=== PATIENT | female | born 2000 | race Caucasian/White ===

== ENCOUNTER 2023-04-30 10:45 | Inpatient (IN) | payer BC, OTHER, SELFPAY ==
[2023-04-30 10:50] VITALS: BP 118/83; PULSE 81; RESP 18; TEMP 36.6; O2SAT 100; BMI 17.7
[2023-04-30 11:52] LABS: MANUAL DIFF FLAG NO
[2023-04-30 12:02] LABS: Basophils Absolute Auto 0.1 X10*3/uL (0.0-0.2); Basophils Percent Auto 0.8 % (0-2); Eosinophils Absolute Auto 0.2 X10*3/uL (0.0-0.4); Eosinophils Percent Auto 2.3 % (0-4); Hematocrit 39.2 % (37.0-47.0); Hemoglobin 13.3 g/dl (12.0-16.0); Imm Gran Abs Auto 0.03 X10*3/uL (0.00-0.03); Imm Gran Pct Auto 0.4 % (0.0-0.4); Lymphocytes Absolute Auto 2.3 X10*3/uL (1.2-4.9); Lymphocytes Percent Auto 28.5 % (20-40); Mean Corpuscular HGB Conc 33.9 g/dl (31.0-35.0); Mean Corpuscular Hemoglobin 31.1 pg (27.0-33.0); Mean Corpuscular Volume 91.8 fL (80.0-98.0); Mean Platelet Volume 9.7 fL (9.4-12.3); Monocytes Absolute Auto 0.7 X10*3/uL (0.1-1.2); Monocytes Percent Auto 9.1 % (2-11); Neutrophils Absolute Auto 4.7 x10*3/uL (2.0-8.3); Neutrophils Percent Auto 58.9 % (45-73); Platelet Count 346 X10*3/uL (160-400); Red Blood Count 4.27 X10*6/uL (4.20-5.50); Red Cell Distribution Width 11.6 % (11.0-16.0); White Blood Count 7.9 X10*3/uL (4.8-10.8)
[2023-04-30 12:10] LABS: Alanine Aminotransferase 7 U/L (0-31); Albumin Level 4.5 g/dL (3.5-5.0); Alkaline Phosphatase 49 U/L (39-117); Anion Gap 13 (12-20); Aspartate Amino Transferase 13 U/L (5-31); Bilirubin Total 0.3 mg/dL (0.0-1.0); Blood Urea Nitrogen 9 mg/dL (9-16); Calcium 10.9 mg/dL (8.4-10.2); Carbon Dioxide 26 mmol/L (22-29); Chloride 101 mmol/L (96-108); Creatinine Clr Calc Pharmacy 86.4; Estimated Glomerular Filt Rate > 60; Ethanol < 10 mg/dL; Glucose Random 107 mg/dL (60-115); Potassium 4.1 mmol/L (3.3-5.1); Sodium 136 mmol/L (135-145); Total Protein 8.2 g/dL (6.5-8.0)
[2023-04-30 12:52] LABS: Acetaminophen LAB < 17 mcg/mL (<30); Salicylate < 5.0 mg/dL (15-30)
[2023-04-30 12:58] LABS: COVID-19 Test Negative (Negative); IDNOW Serial# BCCEAD1C
[2023-04-30 13:19] LABS: UPreg QC Valid YES; Urine Pregnancy NEGATIVE (NEGATIVE)
[2023-04-30 13:20] LABS: Appearance Urine Clear; Color Urine Yellow; Glucose Urine UA Negative (Negative); Leukocyte Esterase Urine Negative (Negative); Nitrite Urine Negative (Negative); Specific Gravity - Urine <= 1.005 (1.005-1.025); Urine Blood Negative (Negative); Urine Ketones Negative (Negative); Urine Protein Negative (Neg-Trace)
[2023-04-30 13:30] LABS: Amphetamine Screen Urine POSITIVE (Not Detect); Barbiturates, Urine Not Detected (Not Detect); Benzodiazepines Screen Urine Not Detected (Not Detect); Cannabinoid Screen Urine Not Detected (Not Detect); Cocaine Screen Urine Not Detected (Not Detect); Fentanyl, urine Not Detected (Not Detect); Opiate Screen Urine Not Detected (Not Detect); Phencyclidine Screen Urine Not Detected (Not Detect)
--- NOTE | 2023-04-30 13:33 | ED_ITS ---
HPI - General Adult General Chief complaint: Psychiatric Symptoms Stated complaint: SI Time Seen by Provider: 04/30/23 11:00 Source: patient Mode of arrival: ambulatory Limitations: no limitations History of Present Illness HPI narrative: 23-year-old female history of depression, anxiety presenting to the emergency department for evaluation of anxiety, depression, suicidal ideation, unwilling to reveal plan, patient coming from psychiatrist office, patient reports increasing life stressors, mother is sick at home, father has upcoming surgery, recently finished her semester of school which caused her a lot of stress. Denies visual, auditory and tactile hallucinations. Denies drugs, alcohol and tobacco. No medical complaints at this time. Related Data Home Medications Medication Instructions Recorded Confirmed escitalopram oxalate 20 mg tablet 20 mg PO DAILY 04/30/23 04/30/23 famotidine 20 mg tablet 20 mg PO BID 04/30/23 04/30/23 fexofenadine 180 mg tablet 180 mg PO DAILY 04/30/23 04/30/23 lisdexamfetamine 70 mg capsule 70 mg PO DAILY attention deficit 04/30/23 04/30/23 (Vyvanse) hyperactivity disorder magnesium oxide 800 mg PO DAILY 04/30/23 04/30/23 multivitamin 1 tab PO QAM 04/30/23 04/30/23 norgestimate 0.25 mg-ethinyl 1 tab PO DAILY 04/30/23 04/30/23 estradiol 35 mcg tablet omalizumab 150 mg/mL subcutaneous 225 mg subcut Q2W 04/30/23 04/30/23 syringe (Xolair) omalizumab 75 mg/0.5 mL 225 mg subcut Q2W 04/30/23 04/30/23 subcutaneous syringe (Xolair) spironolactone 100 mg tablet 100 mg PO BID 04/30/23 04/30/23 Allergies Allergy/AdvReac Type Severity Reaction Status Date / Time almond oil Allergy Unknown hives Uncoded 01/19/20 00:00 almonds Allergy Unknown Uncoded 01/19/20 00:00 apples Allergy Unknown Uncoded 01/19/20 00:00 cat/dog dander Allergy Unknown Uncoded 01/19/20 00:00 green beans Allergy Unknown Uncoded 01/19/20 00:00 hazelnuts Allergy Unknown Uncoded 01/19/20 00:00 polymixin B (neosporin) Allergy Unknown Uncoded 01/19/20 00:00 singulair Allergy Unknown Uncoded 01/19/20 00:00 Review of Systems Review of Systems: Constitutional : No Weight loss, No Fever, No Chills, No Fatigue, No Malaise ENT/Mouth : No sore throat, No Rhinorrhea Eyes: No Eye Pain, No Swelling, No Redness Cardiovascular : No Chest Pain, No SOB, No Dyspnea on Exertion, No Orthopnea, No Edema, No Palpitations Respiratory : No Cough, No Sputum, No Wheezing Gastrointestinal : No Nausea, No Vomiting, No Diarrhea, No Constipation, No abdominal Pain, No Hematochezia, No Melena Genitourinary : No Dysuria, No Urinary Frequency, No Hematuria, Musculoskeletal : No joint pain, No Myalgias, No Joint Swelling Skin : No Skin Lesions, No rash Neuro : No Weakness, No Numbness, No Dizziness, No Headache Psych : No Anxiety/Panic, + Depression, + SI, No HI All other systems reviewed and are negative Yes all other systems are reviewed and are negative [facility] Past Medical History Attestation statement: The following information was validated with the patient. Source: old records reviewed and nursing notes reviewed Social History Social History Advance Directives: No Advance Directives Information Provided: No Physical Exam ED Vital Signs: Vital Signs - 24 hr 04/30/23 10:50 Temperature 97.9 F Pulse Rate 81 Respiratory Rate 18 Blood Pressure 118/83 Pulse Oximetry 100 Oxygen Delivery Method Room Air BMI result Body Mass Index 17.7 vss Appearance: Alert.? Oriented X3.? No acute distress.? Head: Normocephalic, atraumatic, no step-offs or deformities Eyes: Pupils equal, round and reactive to light.? Neck: Normal inspection.? Neck supple.? CVS: Normal heart rate and rhythm.? Pulses normal.? Respiratory: No respiratory distress.? Breath sounds normal.? Abdomen: Soft and nontender.? Skin: Skin warm and dry.? Normal skin color.? Normal skin turgor.? Extremities: No lower extremity edema.? No calf ttp. 5/5 strength to bilateral upper and lower extremities Neuro: Oriented X 3.? No motor deficit.? No sensory deficit. CN 2-12 intact Course Reevaluation(s) Reevaluation #1: I did speak to patient's psychiatrist who tells me that patient has been having intermittent suicidal ideation without particular plan that she is willing to disclose, reports increasing life stressors such as mother and father being sick at home, patient recently finished college, psychiatrist reports that she has not been answering her phone calls. And psychiatry is very concerned about this patient, would like patient to stay in the hospital. Time: 13:36 Reevaluation #2: CBC within normal limits. Chemistry unremarkable. UA without infection. Urine negative. Salicylates, acetaminophen ethanol negative. Amphetamines positive patient is likely prescribed and fed a means will double check with patient. Patient to be placed on a Section 12, pending care team evaluation. At this time patient to be placed on observation, time observation was started patient common cooperative no acute distress will continue to monitor. Time: 13:37 Medical Decision Making Medical Decision Making [facility] Narrative: 23-year-old female presents with anxiety, depression SI, coming from her psychiatrist's office. Physical exam benign. Flat affect noted however. Likely anxiety and depression. Possible bipolar disorder, schizophrenia. I do not suspect metabolic derangements. Plan medical clearance evaluation by behavioral health team. Differential Diagnosis Differential Diagnoses: The differential diagnosis associated with the presentation includes Likely anxiety and depression. Possible bipolar disorder, schizophrenia. I do not suspect metabolic derangements. Admission/Observation Consideration of admission/observation: Escalation of care including admission/observation considered Probable psychiatric admission Consult Healthcare Provider Management of the patient was discussed with: Car Driver (Psychiatrist Dr. vines) Lab Data [facility] Lab Attestation statement: I reviewed the patient's lab results. 04/30/23 11:45 04/30/23 11:45 Labs: Lab Results 04/30/23 04/30/23 04/30/23 Range/Units 11:39 11:45 11:45 WBC 7.9 (4.8-10.8) X10*3/uL RBC 4.27 (4.20-5.50) X10*6/uL Hgb 13.3 (12.0-16.0) g/dl Hct 39.2 (37.0-47.0) % MCV 91.8 (80.0-98.0) fL MCH 31.1 (27.0-33.0) pg MCHC 33.9 (31.0-35.0) g/dl RDW 11.6 (11.0-16.0) % Plt Count 346 (160-400) X10*3/uL MPV 9.7 (9.4-12.3) fL Immature Gran % (Auto) 0.4 (0.0-0.4) % Neut % (Auto) 58.9 (45-73) % Lymph % (Auto) 28.5 (20-40) % [place] % (Auto) 9.1 (2-11) % Eos % (Auto) 2.3 (0-4) % Baso % (Auto) 0.8 (0-2) % Lymph # (Auto) 2.3 (1.2-4.9) X10*3/uL [place] # (Auto) 0.7 (0.1-1.2) X10*3/uL Eos # (Auto) 0.2 (0.0-0.4) X10*3/uL Baso # (Auto) 0.1 (0.0-0.2) X10*3/uL Abs Immat Gran (auto) 0.03 (0.00-0.03) X10*3/uL Absolute Neuts (auto) 4.7 (2.0-8.3) x10*3/uL Absolute Nucleated RBC 0.000 (0.0-0.012) X10*3/uL Nucleated RBC % (auto) 0.0 (0.0-0.2) /100WBC Sodium 136 (135-145) mmol/L Potassium 4.1 (3.3-5.1) mmol/L Chloride 101 (96-108) mmol/L Carbon Dioxide 26 (22-29) mmol/L Anion Gap 13 (12-20) BUN 9 (9-16) mg/dL Creatinine 0.76 (0.5-1.4) mg/dL Estim Creat Clear Calc 86.4 Estimated GFR > 60 Random Glucose 107 (60-115) mg/dL Calcium 10.9 H (8.4-10.2) mg/dL Total Bilirubin 0.3 (0.0-1.0) mg/dL AST 13 (5-31) U/L ALT 7 (0-31) U/L Alkaline Phosphatase 49 (39-117) U/L Total Protein 8.2 H (6.5-8.0) g/dL Albumin 4.5 (3.5-5.0) g/dL Urine Color Urine Appearance Urine pH (5.0-9.0) Ur Specific Brewer (1.005-1.025) Urine Protein (Neg-Trace) mg/dL Urine Glucose (UA) (Negative) mg/dL Urine Ketones (Negative) mg/dL Urine Blood (Negative) Urine Nitrite (Negative) Ur Leukocyte Esterase (Negative) Urine Test (NEGATIVE) Salicylates (15-30) mg/dL Urine Opiates Screen (Not Detect) Urine Fentanyl Screen (Not Detect) Acetaminophen (<30) mcg/mL Ur Barbiturates Screen (Not Detect) Ur Phencyclidine Scrn (Not Detect) Ur Amphetamines Screen (Not Detect) U Benzodiazepines Scrn (Not Detect) Urine Cocaine Screen (Not Detect) U Marijuana (THC) Screen (Not Detect) Ethyl Alcohol mg/dL COVID-19 (IGLESIA) Negative (Negative) COVID-19 Clin Com See Note 04/30/23 04/30/23 04/30/23 Range/Units 11:45 13:06 13:06 WBC (4.8-10.8) X10*3/uL RBC (4.20-5.50) X10*6/uL Hgb (12.0-16.0) g/dl Hct (37.0-47.0) % MCV (80.0-98.0) fL MCH (27.0-33.0) pg MCHC (31.0-35.0) g/dl RDW (11.0-16.0) % Plt Count (160-400) X10*3/uL MPV (9.4-12.3) fL Immature Gran % (Auto) (0.0-0.4) % Neut % (Auto) (45-73) % Lymph % (Auto) (20-40) % [place] % (Auto) (2-11) % Eos % (Auto) (0-4) % Baso % (Auto) (0-2) % Lymph # (Auto) (1.2-4.9) X10*3/uL [place] # (Auto) (0.1-1.2) X10*3/uL Eos # (Auto) (0.0-0.4) X10*3/uL Baso # (Auto) (0.0-0.2) X10*3/uL Abs Immat Gran (auto) (0.00-0.03) X10*3/uL Absolute Neuts (auto) (2.0-8.3) x10*3/uL Absolute Nucleated RBC (0.0-0.012) X10*3/uL Nucleated RBC % (auto) (0.0-0.2) /100WBC Sodium (135-145) mmol/L Potassium (3.3-5.1) mmol/L Chloride (96-108) mmol/L Carbon Dioxide (22-29) mmol/L Anion Gap (12-20) BUN (9-16) mg/dL Creatinine (0.5-1.4) mg/dL Estim Creat Clear Calc Estimated GFR Random Glucose (60-115) mg/dL Calcium (8.4-10.2) mg/dL Total Bilirubin (0.0-1.0) mg/dL AST (5-31) U/L ALT (0-31) U/L Alkaline Phosphatase (39-117) U/L Total Protein (6.5-8.0) g/dL Albumin (3.5-5.0) g/dL Urine Color Yellow Urine Appearance Clear Urine pH 6.0 (5.0-9.0) Ur Specific Brew[place] <= 1.005 (1.005-1.025) Urine Protein Negative (Neg-Trace) mg/dL Urine Glucose (UA) Negative (Negative) mg/dL Urine Ketones Negative (Negative) mg/dL Urine Blood Negative (Negative) Urine Nitrite Negative (Negative) Ur Leukocyte Esterase Negative (Negative) Urine Test NEGATIVE (NEGATIVE) Salicylates < 5.0 L (15-30) mg/dL Urine Opiates Screen (Not Detect) Urine Fentanyl Screen (Not Detect) Acetaminophen < 17 (<30) mcg/mL Ur Barbiturates Screen (Not Detect) Ur Phencyclidine Scrn (Not Detect) Ur Amphetamines Screen (Not Detect) U Benzodiazepines Scrn (Not Detect) Urine Cocaine Screen (Not Detect) U Marijuana (THC) Screen (Not Detect) Ethyl Alcohol < 10 mg/dL COVID-19 (IGLESIA) (Negative) COVID-19 Clin Com 04/30/23 Range/Units 13:06 WBC (4.8-10.8) X10*3/uL RBC (4.20-5.50) X10*6/uL Hgb (12.0-16.0) g/dl Hct (37.0-47.0) % MCV (80.0-98.0) fL MCH (27.0-33.0) pg MCHC (31.0-35.0) g/dl RDW (11.0-16.0) % Plt Count (160-400) X10*3/uL MPV (9.4-12.3) fL Immature Gran % (Auto) (0.0-0.4) % Neut % (Auto) (45-73) % Lymph % (Auto) (20-40) % [place] % (Auto) (2-11) % Eos % (Auto) (0-4) % Baso % (Auto) (0-2) % Lymph # (Auto) (1.2-4.9) X10*3/uL [place] # (Auto) (0.1-1.2) X10*3/uL Eos # (Auto) (0.0-0.4) X10*3/uL Baso # (Auto) (0.0-0.2) X10*3/uL Abs Immat Gran (auto) (0.00-0.03) X10*3/uL Absolute Neuts (auto) (2.0-8.3) x10*3/uL Absolute Nucleated RBC (0.0-0.012) X10*3/uL Nucleated RBC % (auto) (0.0-0.2) /100WBC Sodium (135-145) mmol/L Potassium (3.3-5.1) mmol/L Chloride (96-108) mmol/L Carbon Dioxide (22-29) mmol/L Anion Gap (12-20) BUN (9-16) mg/dL Creatinine (0.5-1.4) mg/dL Estim Creat Clear Calc Estimated GFR Random Glucose (60-115) mg/dL Calcium (8.4-10.2) mg/dL Total Bilirubin (0.0-1.0) mg/dL AST (5-31) U/L ALT (0-31) U/L Alkaline Phosphatase (39-117) U/L Total Protein (6.5-8.0) g/dL Albumin (3.5-5.0) g/dL Urine Color Urine Appearance Urine pH (5.0-9.0) Ur Specific [place] (1.005-1.025) Urine Protein (Neg-Trace) mg/dL Urine Glucose (UA) (Negative) mg/dL Urine Ketones (Negative) mg/dL Urine Blood (Negative) Urine Nitrite (Negative) Ur Leukocyte Esterase (Negative) Urine Test (NEGATIVE) Salicylates (15-30) mg/dL Urine Opiates Screen Not Detected (Not Detect) Urine Fentanyl Screen Not Detected (Not Detect) Acetaminophen (<30) mcg/mL Ur Barbiturates Screen Not Detected (Not Detect) Ur Phencyclidine Scrn Not Detected (Not Detect) Ur Amphetamines Screen POSITIVE H (Not Detect) U Benzodiazepines Scrn Not Detected (Not Detect) Urine Cocaine Screen Not Detected (Not Detect) U Marijuana (THC) Screen Not Detected (Not Detect) Ethyl Alcohol mg/dL COVID-19 (IGLESIA) (Negative) COVID-19 Clin Com Core Measures AMI core measures followed: Yes Measure exclusions: not indicated Critical Care Time Critical Care Time Critical Care Time: Yes Total Critical Care Time: 35 Attestation: I attest to this time spent taking care of the patient, obtaining history, physical, reviewing labs, imaging, speaking to my attending, speaking to specialist. Discharge Plan Discharge Clinical Impression: Depression, Suicidal ideation Patient Disposition: Still a Patient Prescriptions: No Action multivitamin Tablet 1 tab PO QAM fexofenadine 180 mg Tablet 180 mg PO DAILY famotidine 20 mg Tablet 20 mg PO BID escitalopram oxalate 20 mg tablet 20 mg PO DAILY Vyvanse 70 mg capsule 70 mg PO DAILY magnesium oxide 400 mg magnesium Capsule 800 mg PO DAILY Xolair 75 mg/0.5 mL syringe 225 mg subcut Q2W Rx Instructions: took on wed04/25/23 Xolair 150 mg/mL syringe 225 mg subcut Q2W Rx Instructions: Took on wednesday04/25/23 norgestimate-ethinyl estradiol 0.25-35 mg-mcg tablet 1 tab PO DAILY spironolactone 100 mg tablet 100 mg PO BID
[2023-04-30 16:00] VITALS: BP 94/62; PULSE 86; RESP 16; TEMP 36.6; O2SAT 97
--- NOTE | 2023-04-30 16:55 | MHC.CARE ---
patient is voluntary for inpatient LOC, reporting SI. CV signed, in chart. pending placement.
--- NOTE | 2023-04-30 17:53 | PC.NURSE ---
Report given to M3 RN
[2023-04-30 18:30] VITALS: BP 106/70; PULSE 91; TEMP 36; O2SAT 99
--- NOTE | 2023-04-30 19:13 | PC.ADMIT ---
Angela is a 23-year-old female admitted to [facility] ED to [facility] 04/30/23 at 1830 for increasing depression and SI with plan to overdose, CV signed. Medical dx: asthma and acid reflux. Tox screen positive for amphetamines, pt takes prescribed Vyvanse and denies use of other substances or alcohol. Pt does not have hx of suicide attempts or history of psychiatric admissions. Precipitant to admission includes pt meeting with her psychiatrist and reporting SI with thoughts of acting on it. Pt has been isolating, avoiding friends, and crying frequently. Pt reports no issues with appetite but struggles with sleep. 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 She reports restlessness and racing thoughts leading to difficulties with studying and performing on tests. Pt is pleasant and cooperative, affect is flat and withdrawn. Pt denies SI/HI/AH/VH but will reach out to staff if thoughts occur.
--- NOTE | 2023-04-30 19:39 | PC.NURSE ---
Skin check performed
[2023-04-30] MEDS: Spironolactone 25 MG TABLET 100 MG PO (20:55)
[2023-04-30] MEDS: Famotidine 20 MG TABLET PO (20:55)
--- NOTE | 2023-05-01 08:13 | P.HPPS_ITS ---
HPI Date of Service: 05/01/23 Chief Complaint: depression/SI Sources of Information: patient interviewed, chart reviewed and crisis/core team assessment reviewed HPI Subjective Notes: Conditional Voluntary Healthcare Proxy: No Guardianship: No Medical Problems Affecting Mental Status: No Narrative: Angela is a 23-year-old white, single, [employer] student/sophomore in [employer]. She has history of depression going back at least a couple of years and has been on Lexapro 20 mg and also has been treated for ADHD, on Vyvanse 70 mg for a couple of years also. The Vyvanse has been helpful with her level of energy, focus and ability to complete tasks. She is taking summer courses and states that she has been feeling more depressed in the past couple weeks but de nies any specific reasons. She did not have a good year and has been struggling academically. She has been having plans to overdose and eventually was brought in by her parents to the emergency room and subsequently hospitalized. No previous history of suicidal ideations or attempts. No history of substance abuse. She denies any side effects on her to medications. Sleeping has been up and down, sometimes having trouble to going to sleep and once she does she may sleep for up to 10-12 hours. Eating and appetite are unchanged. Past Psychiatric History: Outpatient treatment, seeing a therapist, Gloria Nava and Dr. Vargas for her medications. Medical Evaluation Reviewed: Yes Labs were reviewed. Elevated total protein at 8.2 PMFSH Narrative: Positive for asthma, speech apraxia Family History: None except for OCD in her sister Social History: Angela is 1 of 2 girls. She has an older sister who lives in [facility]. Her parents are together and live in [place]. She is currently living at home for the summer but during academic year she lives at school. Limited social life. No relationships. She denies any history of abuse. 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 She did fairly well in high school but struggled in her 2nd year in college and that may be the reason for her current depression and suicidal ideations, being unsure about her future prospects and current struggles and predicament. Substance History: None Trauma History: None Diagnostics Vital Signs (24Hr): Vital Signs - 24 hr 04/30/23 10:50 04/30/23 16:00 04/30/23 18:30 Temperature 97.9 F 97.9 F 96.8 F Pulse Rate 81 86 91 Respiratory Rate 18 16 Blood Pressure 118/83 94/62 106/70 Pulse Oximetry 100 97 99 Oxygen Delivery Method Room Air Room Air Room Air BMI result Body Mass Index 17.7 Labs 04/30/23 11:45 04/30/23 11:45 Labs: Laboratory Results - last 48 hr 04/30/23 04/30/23 04/30/23 11:39 11:45 11:45 WBC 7.9 RBC 4.27 Hgb 13.3 Hct 39.2 MCV 91.8 MCH 31.1 MCHC 33.9 RDW 11.6 Plt Count 346 MPV 9.7 Immature Gran % (Auto) 0.4 Neut % (Auto) 58.9 Lymph % (Auto) 28.5 Andrews % (Auto) 9.1 Eos % (Auto) 2.3 Baso % (Auto) 0.8 Lymph # (Auto) 2.3 Andrews # (Auto) 0.7 Eos # (Auto) 0.2 Baso # (Auto) 0.1 Abs Immat Gran (auto) 0.03 Absolute Neuts (auto) 4.7 Absolute Nucleated RBC 0.000 Nucleated RBC % (auto) 0.0 Sodium 136 Potassium 4.1 Chloride 101 Carbon Dioxide 26 Anion Gap 13 BUN 9 Creatinine 0.76 Estim Creat Clear Calc 86.4 Estimated GFR > 60 Random Glucose 107 Calcium 10.9 H Total Bilirubin 0.3 AST 13 ALT 7 Alkaline Phosphatase 49 Total Protein 8.2 H Albumin 4.5 Urine Color Urine Appearance Urine pH Ur Specific [place] Urine Protein Urine Glucose (UA) Urine Ketones Urine Blood Urine Nitrite Ur Leukocyte Esterase Urine Test Salicylates Urine Opiates Screen Urine Fentanyl Screen Acetaminophen Ur Barbiturates Screen Ur Phencyclidine Scrn Ur Amphetamines Screen U Benzodiazepines Scrn Urine Cocaine Screen U Marijuana (THC) Screen Ethyl Alcohol COVID-19 (IGLESIA) Negative COVID-19 Clin Com See Note 04/30/23 04/30/23 04/30/23 11:45 13:06 13:06 WBC RBC Hgb Hct MCV MCH MCHC RDW Plt Count MPV Immature Gran % (Auto) Neut % (Auto) Lymph % (Auto) [place] % (Auto) Eos % (Auto) Baso % (Auto) Lymph # (Auto) Andrews # (Auto) Eos # (Auto) Baso # (Auto) Abs Immat Gran (auto) Absolute Neuts (auto) Absolute Nucleated RBC Nucleated RBC % (auto) Sodium Potassium Chloride Carbon Dioxide Anion Gap BUN Creatinine Estim Creat Clear Calc Estimated GFR Random Glucose Calcium Total Bilirubin AST ALT Alkaline Phosphatase Total Protein Albumin Urine Color Yellow Urine Appearance Clear Urine pH 6.0 Ur Specific [place] <= 1.005 Urine Protein Negative Urine Glucose (UA) Negative Urine Ketones Negative Urine Blood Negative Urine Nitrite Negative Ur Leukocyte Esterase Negative Urine Test NEGATIVE Salicylates < 5.0 L Urine Opiates Screen Urine Fentanyl Screen Acetaminophen < 17 Ur Barbiturates Screen Ur Phencyclidine Scrn Ur Amphetamines Screen U Benzodiazepines Scrn Urine Cocaine Screen U Marijuana (THC) Screen Ethyl Alcohol < 10 COVID-19 (IGLESIA) [email or web address] 04/30/23 13:06 WBC RBC Hgb Hct MCV MCH MCHC RDW Plt Count MPV Immature Gran % (Auto) Neut % (Auto) Lymph % (Auto) Andrews % (Auto) Eos % (Auto) Baso % (Auto) Lymph # (Auto) Andrews # (Auto) Eos # (Auto) Baso # (Auto) Abs Immat Gran (auto) Absolute Neuts (auto) Absolute Nucleated RBC Nucleated RBC % (auto) Sodium Potassium Chloride Carbon Dioxide Anion Gap BUN Creatinine Estim Creat Clear Calc Estimated GFR Random Glucose Calcium Total Bilirubin AST ALT Alkaline Phosphatase Total Protein Albumin Urine Color Urine Appearance Urine pH Ur Specific [place] Urine Protein Urine Glucose (UA) Urine Ketones Urine Blood Urine Nitrite Ur Leukocyte Esterase Urine Test Salicylates Urine Opiates Screen Not Detected Urine Fentanyl Screen Not Detected Acetaminophen Ur Barbiturates Screen Not Detected Ur Phencyclidine Scrn Not Detected Ur Amphetamines Screen POSITIVE H U Benzodiazepines Scrn Not Detected Urine Cocaine Screen Not Detected U Marijuana (THC) Screen Not Detected Ethyl Alcohol COVID-19 (IGLESIA) COVID-19 [employer] Meds/Allergies Meds Home Medications Medication Instructions Recorded Confirmed Type escitalopram oxalate 20 mg tablet 20 mg PO DAILY 04/30/23 04/30/23 History famotidine 20 mg tablet 20 mg PO BID 04/30/23 04/30/23 History fexofenadine 180 mg tablet 180 mg PO DAILY 04/30/23 04/30/23 History lisdexamfetamine 70 mg capsule 70 mg PO DAILY attention deficit 04/30/23 04/30/23 History (Vyvanse) hyperactivity disorder magnesium oxide 800 mg PO DAILY 04/30/23 04/30/23 History multivitamin 1 tab PO QAM 04/30/23 04/30/23 History norgestimate 0.25 mg-ethinyl 1 tab PO DAILY 04/30/23 04/30/23 History estradiol 35 mcg tablet omalizumab 150 mg/mL subcutaneous 225 mg subcut Q2W 04/30/23 04/30/23 History syringe (Xolair) omalizumab 75 mg/0.5 mL 225 mg subcut Q2W 04/30/23 04/30/23 History subcutaneous syringe (Xolair) spironolactone 100 mg tablet 100 mg PO BID 04/30/23 04/30/23 History Allergies Allergies Allergy/AdvReac Type Severity Reaction Status Date / Time almond oil Allergy Unknown hives Uncoded 01/19/20 00:00 almonds Allergy Unknown Uncoded 01/19/20 00:00 apples Allergy Unknown Uncoded 01/19/20 00:00 cat/dog dander Allergy Unknown Uncoded 01/19/20 00:00 green beans Allergy Unknown Uncoded 01/19/20 00:00 hazelnuts Allergy Unknown Uncoded 01/19/20 00:00 polymixin B (neosporin) Allergy Unknown Uncoded 01/19/20 00:00 singulair Allergy Unknown Uncoded 01/19/20 00:00 Mental Status Exam Mental Status Exam Narrative: Madie was seen the morning after her admission. She is in hospital attire. She is alert, oriented and pleasant. Speech is soft-spoken with frequent pauses. Minimal eye contact. Affect is appropriate and constricted. She admits to having had suicidal ideations but denies any active plans and contracts for safety on the unit. No auditory or visual hallucinations. No delusions. Cognitively she is grossly intact. Judgment is intact Assessment & Plan Assessment & Plan (1) Depression: Status: Acute Code(s): F32.A - Depression, unspecified (2) Suicidal ideation: Status: Acute Code(s): R45.851 - Suicidal ideations Plan In conclusion Angela was admitted for safety and stabilization. Current medications, Lexapro 20 mg and Vyvanse 70 mg were continued. She will meet with her treatment team on 05/03/2023. Contacts to be made with her treaters. Patient educated on: diagnosis and medication risk/benefits Reason for continued inpatient stay Substantial Risk for: harm to self Statement Statement: I have reviewed the history and physical and performed a pertinent examination on my patient. No changes have occurred unless specified. If the History and Physical was not performed prior to admission, the Hospitalist's service will be consulted for completing the admission physical. Time Spent With Patient Time: Total time managing care of this patient today ____ minutes.
[2023-05-01 08:30] VITALS: BP 100/62; PULSE 83; RESP 18; TEMP 36.6; O2SAT 100
[2023-05-01] MEDS: Spironolactone 25 MG TABLET 100 MG PO ×2 (09:12→20:57)
[2023-05-01] MEDS: Multivitamin TABLET 1 TAB PO (09:13)
[2023-05-01] MEDS: Escitalopram Oxalate 20 MG TABLET PO (09:13)
[2023-05-01] MEDS: Loratadine 10 MG TABLET PO (09:14)
[2023-05-01] MEDS: Magnesium Oxide 400 MG TABLET 800 MG PO (09:14)
[2023-05-01] MEDS: Famotidine 20 MG TABLET PO ×2 (09:14→20:57)
[2023-05-01 21:03] VITALS: BP 108/72; PULSE 71; RESP 16; TEMP 36.2; O2SAT 97
[2023-05-02 08:00] VITALS: BP 98/63; PULSE 87; RESP 18; TEMP 36.6; O2SAT 98
--- NOTE | 2023-05-02 09:20 | P.PNPSI_ITS ---
Subjective Subjective Date of Service: 05/02/23 Reason For Visit: depression/SI Subjective Notes: Conditional Voluntary Healthcare Proxy: No Guardianship: No Medical Problems Affecting Mental Status: No Interim History: Patient was seen and discussed in rounds today. Records and plans were amrit collazo. She has been stable and has settled in. She is eating and sleeping adequately. No complaints or side effects. She denies any SI. Continues to endorse anxiety and depression at 5. She is attending groups. No changes were made today Medication Compliance: Yes Side effects from medications: No Attending Groups: Yes Review of Systems Acute medical concerns: No Review of Systems Review of Systems Yes all other systems are reviewed and are negative Mental Status Exam Mental Status Exam Narrative: In today's visit she is alert, oriented and pleasant. Normal speech. Good eye contact. Affect is appropriate and constricted. No signs of psychosis. No SI upon inquiry. Cognitively is intact. Judgment is intact Diagnostics Vital Signs (24Hr): Vital Signs - 24 hr 05/01/23 21:03 Temperature 97.2 F Pulse Rate 71 Respiratory Rate 16 Blood Pressure 108/72 Pulse Oximetry 97 Oxygen Delivery Method Room Air BMI result Body Mass Index 17.7 Labs 04/30/23 11:45 04/30/23 11:45 Labs: Laboratory Results - last 48 hr 04/30/23 04/30/23 04/30/23 11:39 11:45 11:45 WBC 7.9 RBC 4.27 Hgb 13.3 Hct 39.2 MCV 91.8 MCH 31.1 MCHC 33.9 RDW 11.6 Plt Count 346 MPV 9.7 Immature Gran % (Auto) 0.4 Neut % (Auto) 58.9 Lymph % (Auto) 28.5 Howard % (Auto) 9.1 Eos % (Auto) 2.3 Baso % (Auto) 0.8 Lymph # (Auto) 2.3 Howard # (Auto) 0.7 Eos # (Auto) 0.2 Baso # (Auto) 0.1 Abs Immat Gran (auto) 0.03 Absolute Neuts (auto) 4.7 Absolute Nucleated RBC 0.000 Nucleated RBC % (auto) 0.0 Sodium 136 Potassium 4.1 Chloride 101 Carbon Dioxide 26 Anion Gap 13 BUN 9 Creatinine 0.76 Estim Creat Clear Calc 86.4 Estimated GFR > 60 Random Glucose 107 Calcium 10.9 H Total Bilirubin 0.3 AST 13 ALT 7 Alkaline Phosphatase 49 Total Protein 8.2 H Albumin 4.5 Urine Color Urine Appearance Urine pH Ur Specific [place] Urine Protein Urine Glucose (UA) Urine Ketones Urine Blood Urine Nitrite Ur Leukocyte Esterase Urine Test Salicylates Urine Opiates Screen Urine Fentanyl Screen Acetaminophen Ur Barbiturates Screen Ur Phencyclidine Scrn Ur Amphetamines Screen U Benzodiazepines Scrn Urine Cocaine Screen U Marijuana (THC) Screen Ethyl Alcohol COVID-19 (IGLESIA) Negative COVID-19 Clin Com See Note 04/30/23 04/30/23 04/30/23 11:45 13:06 13:06 WBC RBC Hgb Hct MCV MCH MCHC RDW Plt Count MPV Immature Gran % (Auto) Neut % (Auto) Lymph % (Auto) Howard % (Auto) Eos % (Auto) Baso % (Auto) Lymph # (Auto) Howard # (Auto) Eos # (Auto) Baso # (Auto) Abs Immat Gran (auto) Absolute Neuts (auto) Absolute Nucleated RBC Nucleated RBC % (auto) Sodium Potassium Chloride Carbon Dioxide Anion Gap BUN Creatinine Estim Creat Clear Calc Estimated GFR Random Glucose Calcium Total Bilirubin AST ALT Alkaline Phosphatase Total Protein Albumin Urine Color Yellow Urine Appearance Clear Urine pH 6.0 Ur Specific [place] <= 1.005 Urine Protein Negative Urine Glucose (UA) Negative Urine Ketones Negative Urine Blood Negative Urine Nitrite Negative Ur Leukocyte Esterase Negative Urine Test NEGATIVE Salicylates < 5.0 L Urine Opiates Screen Urine Fentanyl Screen Acetaminophen < 17 Ur Barbiturates Screen Ur Phencyclidine Scrn Ur Amphetamines Screen U Benzodiazepines Scrn Urine Cocaine Screen U Marijuana (THC) Screen Ethyl Alcohol < 10 COVID-19 (IGLESIA) COVID-19 Clin Com 04/30/23 13:06 WBC RBC Hgb Hct MCV MCH MCHC RDW Plt Count MPV Immature Gran % (Auto) Neut % (Auto) Lymph % (Auto) Howard % (Auto) Eos % (Auto) Baso % (Auto) Lymph # (Auto) Howard # (Auto) Eos # (Auto) Baso # (Auto) Abs Immat Gran (auto) Absolute Neuts (auto) Absolute Nucleated RBC Nucleated RBC % (auto) Sodium Potassium Chloride Carbon Dioxide Anion Gap BUN Creatinine Estim Creat Clear Calc Estimated GFR Random Glucose Calcium Total Bilirubin AST ALT Alkaline Phosphatase Total Protein Albumin Urine Color Urine Appearance Urine pH Ur Specific [place] Urine Protein Urine Glucose (UA) Urine Ketones Urine Blood Urine Nitrite Ur Leukocyte Esterase Urine Test Salicylates Urine Opiates Screen Not Detected Urine Fentanyl Screen Not Detected Acetaminophen Ur Barbiturates Screen Not Detected Ur Phencyclidine Scrn Not Detected Ur Amphetamines Screen POSITIVE H U Benzodiazepines Scrn Not Detected Urine Cocaine Screen Not Detected U Marijuana (THC) Screen Not Detected Ethyl Alcohol COVID-19 (IGLESIA) COVID-19 Clin Com Medications Medications Current Medications Acetaminophen (Acetaminophen 325 Mg Tablet) 650 mg PO Q6H PRN PRN Reason: Headache/Pain Mild Scale (1-3) Al Hydroxide/Mg Hydroxide (Magnesium Hydrox/Alum Hydrox 30 Ml Oral.Susp) 30 ml PO Q6H PRN PRN Reason: Heartburn/Nausea Escitalopram Oxalate (Escitalopram Oxalate 20 Mg Tablet) 20 mg PO DAILY [facility] Last Admin: 05/01/23 09:13 Dose: 20 mg Famotidine (Famotidine 20 Mg Tablet) 20 mg PO BID [facility] Last Admin: 05/01/23 20:57 Dose: 20 mg Hydroxyzine HCl (Hydroxyzine Hcl 25 Mg Tablet) 25 mg PO Q6H PRN PRN Reason: Anxiety Loratadine (Loratadine 10 Mg Tablet) 10 mg PO DAILY [facility] Last Admin: 05/01/23 09:14 Dose: 10 mg Magnesium Hydroxide (Milk Of Magnesia 30 Ml Oral.Susp) 30 ml PO DAILY PRN PRN Reason: Constipation Magnesium Oxide (Magnesium Oxide 400 Mg Tablet) 800 mg PO DAILY [facility] Last Admin: 05/01/23 09:14 Dose: 800 mg Multivitamins/Vitamin C (Multivitamin Tablet) 1 tab PO DAILY [facility] Last Admin: 05/01/23 09:13 Dose: 1 tab Pat Own Med( Lisdexamfetamine [ Vyvanse] 70 Mg Capsule) 70 mg PO DAILY [facility] Last Admin: 05/01/23 09:08 Dose: 70 mg Patient Own Med ( Norgestimate-Ethinyl Estradiol 0.25-35 Mg-Mcg Tablet) 1 tab PO DAILY [facility] Last Admin: 05/01/23 09:12 Dose: 1 tab Spironolactone (Spironolactone 25 Mg Tablet) 100 mg PO BID [facility]; Protocol Last Admin: 05/01/23 20:57 Dose: 100 mg Trazodone HCl (Trazodone Hcl 50 Mg Tablet) 50 mg PO BEDTIME MRX1 PRN PRN Reason: Insomnia Allergies Allergies Allergy/AdvReac Type Severity Reaction Status Date / Time almond oil Allergy Unknown hives Uncoded 01/19/20 00:00 almonds Allergy Unknown Uncoded 01/19/20 00:00 apples Allergy Unknown Uncoded 01/19/20 00:00 cat/dog dander Allergy Unknown Uncoded 01/19/20 00:00 green beans Allergy Unknown Uncoded 01/19/20 00:00 hazelnuts Allergy Unknown Uncoded 01/19/20 00:00 polymixin B (neosporin) Allergy Unknown Uncoded 01/19/20 00:00 singulair Allergy Unknown Uncoded 01/19/20 00:00 Assessment & Plan Assessment & Plan (1) Depression: Status: Acute Code(s): F32.A - Depression, unspecified (2) Suicidal ideation: Status: Acute Code(s): R45.851 - Suicidal ideations Plan In conclusion Angela was admitted for safety and stabilization. Current medications, Lexapro 20 mg and Vyvanse 70 mg were continued. She will meet with her treatment team on 05/03/2023. Contacts to be made with her treaters. 05/02: Continue current regimen and plans Reason for continued inpatient stay Substantial Risk for: harm to self Time Spent With Patient Time: Total time managing care of this patient today ____ minutes.
[2023-05-02] MEDS: Spironolactone 25 MG TABLET 100 MG PO ×2 (09:29→20:50)
[2023-05-02] MEDS: Escitalopram Oxalate 20 MG TABLET PO (09:30)
[2023-05-02] MEDS: Magnesium Oxide 400 MG TABLET 800 MG PO (09:30)
[2023-05-02] MEDS: Loratadine 10 MG TABLET PO (09:31)
[2023-05-02] MEDS: Famotidine 20 MG TABLET PO ×2 (09:31→20:51)
[2023-05-02] MEDS: Multivitamin TABLET 1 TAB PO (09:31)
[2023-05-02 19:50] VITALS: BP 102/67; PULSE 96; RESP 16; TEMP 36.6; O2SAT 97
[2023-05-03 06:00] VITALS: BP 98/64; PULSE 73; RESP 16; TEMP 36.2; O2SAT 98
[2023-05-03] MEDS: Spironolactone 25 MG TABLET 100 MG PO ×2 (09:11→20:54)
[2023-05-03] MEDS: Multivitamin TABLET 1 TAB PO (09:12)
[2023-05-03] MEDS: Loratadine 10 MG TABLET PO (09:12)
[2023-05-03] MEDS: Escitalopram Oxalate 20 MG TABLET PO (09:12)
[2023-05-03] MEDS: Magnesium Oxide 400 MG TABLET 800 MG PO (09:12)
[2023-05-03] MEDS: Famotidine 20 MG TABLET PO ×2 (09:12→20:54)
--- NOTE | 2023-05-03 15:33 | P.PNPSI_ITS ---
Subjective Subjective Date of Service: 05/03/23 Reason For Visit: depression/SI Interim History: pt reports trials on prozac , zolft, cymbalta. did not take them at adequate doses for long enough to see if they actually worked, however. wellbutrin may have been helpful but over doses of 100 mg daily she developed intolerable mood swings. augmentation with abilify 2 mg caused akathisia. she has been on lexapro 20 for 1.5-2 yrs. says she's on vyvanse for chronic fatigue and binge e ating d/o. asking for TSH testing. per staff, depression with SI. napping. good visit with her father. anx/dep 03/24. denied SI/HI. feels meds causing her an upset stomach. Mental Status Exam Mental Status Exam Narrative: In today's visit she is alert, oriented and pleasant. Normal speech. Good eye contact. Affect is appropriate and constricted. No signs of psychosis. No SI upon inquiry. Cognitively is intact. Judgment is intact Diagnostics Vital Signs (24Hr): Vital Signs - 24 hr 05/02/23 19:50 05/03/23 06:00 Temperature 97.8 F 97.2 F Pulse Rate 96 73 Respiratory Rate 16 16 Blood Pressure 102/67 98/64 Pulse Oximetry 97 98 Oxygen Delivery Method Room Air Room Air BMI result Body Mass Index 17.7 Labs 04/30/23 11:45 04/30/23 11:45 Medications Medications Current Medications Acetaminophen (Acetaminophen 325 Mg Tablet) 650 mg PO Q6H PRN PRN Reason: Headache/Pain Mild Scale (1-3) Al Hydroxide/Mg Hydroxide (Magnesium Hydrox/Alum Hydrox 30 Ml Oral.Susp) 30 ml PO Q6H PRN PRN Reason: Heartburn/Nausea Escitalopram Oxalate (Escitalopram Oxalate 20 Mg Tablet) 20 mg PO DAILY [facility] Last Admin: 05/03/23 09:12 Dose: 20 mg Famotidine (Famotidine 20 Mg Tablet) 20 mg PO BID [facility] Last Admin: 05/03/23 09:12 Dose: 20 mg Hydroxyzine HCl (Hydroxyzine Hcl 25 Mg Tablet) 25 mg PO Q6H PRN PRN Reason: Anxiety Loratadine (Loratadine 10 Mg Tablet) 10 mg PO DAILY [facility] Last Admin: 05/03/23 09:12 Dose: 10 mg Magnesium Hydroxide (Milk Of Magnesia 30 Ml Oral.Susp) 30 ml PO DAILY PRN PRN Reason: Constipation Magnesium Oxide (Magnesium Oxide 400 Mg Tablet) 800 mg PO DAILY [facility] Last Admin: 05/03/23 09:12 Dose: 800 mg Multivitamins/Vitamin C (Multivitamin Tablet) 1 tab PO DAILY [facility] Last Admin: 05/03/23 09:12 Dose: 1 tab Pat Own Med( Lisdexamfetamine [ Vyvanse] 70 Mg Capsule) 70 mg PO DAILY [facility] Last Admin: 05/03/23 09:24 Dose: 70 mg Patient Own Med ( Norgestimate-Ethinyl Estradiol 0.25-35 Mg-Mcg Tablet) 1 tab PO DAILY [facility] Last Admin: 05/03/23 09:11 Dose: 1 tab Spironolactone (Spironolactone 25 Mg Tablet) 100 mg PO BID [facility]; Protocol Last Admin: 05/03/23 09:11 Dose: 100 mg Trazodone HCl (Trazodone Hcl 50 Mg Tablet) 50 mg PO BEDTIME MRX1 PRN PRN Reason: Insomnia Allergies Allergies Allergy/AdvReac Type Severity Reaction Status Date / Time almond oil Allergy Unknown hives Uncoded 01/19/20 00:00 almonds Allergy Unknown Uncoded 01/19/20 00:00 apples Allergy Unknown Uncoded 01/19/20 00:00 cat/dog dander Allergy Unknown Uncoded 01/19/20 00:00 green beans Allergy Unknown Uncoded 01/19/20 00:00 hazelnuts Allergy Unknown Uncoded 01/19/20 00:00 polymixin B (neosporin) Allergy Unknown Uncoded 01/19/20 00:00 singulair Allergy Unknown Uncoded 01/19/20 00:00 Assessment & Plan Assessment & Plan (1) Depression: Status: Acute Code(s): F32.A - Depression, unspecified (2) Suicidal ideation: Status: Acute Code(s): R45.851 - Suicidal ideations Plan In conclusion Angela was admitted for safety and stabilization. Current medications, Lexapro 20 mg and Vyvanse 70 mg were continued. She will meet with her treatment team on 05/03/2023. Contacts to be made with her treaters. 05/02: Continue current regimen and plans 05/03: message sent to yina, outpt provider, for input. medications Hx taken. no change to mgmt today, pending input from yina. Reason for continued inpatient stay Substantial Risk for: harm to self, inability to function and rapid decompens ation Time Spent With Patient Time: Total time managing care of this patient today __35__ minutes.
[2023-05-03 16:38] LABS: TSH reflex Free T4 0.67 uIU/mL (0.32-4.0)
[2023-05-03 16:52] LABS: Folate 16.8 ng/mL (> or = 4.0); Vitamin B12 694 pg/mL (200-900)
[2023-05-03 20:47] VITALS: BP 115/62; PULSE 86; TEMP 36.2; O2SAT 98
[2023-05-04 09:45] VITALS: BP 100/60; PULSE 83; TEMP 36.6; O2SAT 97
[2023-05-04] MEDS: Spironolactone 25 MG TABLET 100 MG PO ×2 (09:52→20:26)
[2023-05-04] MEDS: Magnesium Oxide 400 MG TABLET 800 MG PO (09:53)
[2023-05-04] MEDS: Multivitamin TABLET 1 TAB PO (09:53)
[2023-05-04] MEDS: Escitalopram Oxalate 20 MG TABLET PO (09:53)
[2023-05-04] MEDS: Famotidine 20 MG TABLET PO ×2 (09:53→20:26)
[2023-05-04] MEDS: Loratadine 10 MG TABLET PO (09:53)
[2023-05-04] MEDS: Milk of Magnesia 30 ML ORAL.SUSP PO (14:16)
--- NOTE | 2023-05-04 15:58 | HO.PSYCHPN ---
Subjective Subjective Date of Service: 05/04/23 Reason For Visit: depression/SI Interim History: calm, cooperative. with input from outpt provider, pt agrees to DC lexapro and start prozac. will consider adding risperidone later (0.5-1 mg at HS). per staff, isolative. dep/anx 5. no SI/HI/AVH. sleepy 2/2 med changes. slept about 7 hours. Mental Status Exam Mental Status Exam Narrative: In today's visit she is alert, oriented and pleasant. Normal speech. Good eye contact. Affect is appropriate and constricted. No signs of psychosis. no SI/HI/AVH expressed. Cognitively is intact. Judgment is intact Diagnostics Vital Signs (24Hr): Vital Signs - 24 hr 05/03/23 20:47 05/04/23 09:45 Temperature 97.2 F 98 F Pulse Rate 86 83 Blood Pressure 115/62 100/60 Pulse Oximetry 98 97 Oxygen Delivery Method Room Air Room Air BMI result Body Mass Index 17.7 Labs 04/30/23 11:45 04/30/23 11:45 Labs: Laboratory Results - last 48 hr 05/03/23 05/03/23 15:41 15:41 Vitamin B12 694 Folate 16.8 TSH 0.67 Medications Medications Current Medications Acetaminophen (Acetaminophen 325 Mg Tablet) 650 mg PO Q6H PRN PRN Reason: Headache/Pain Mild Scale (1-3) Al Hydroxide/Mg Hydroxide (Magnesium Hydrox/Alum Hydrox 30 Ml Oral.Susp) 30 ml PO Q6H PRN PRN Reason: Heartburn/Nausea Famotidine (Famotidine 20 Mg Tablet) 20 mg PO BID [facility] Last Admin: 05/04/23 09:53 Dose: 20 mg Fluoxetine HCl (Fluoxetine Hcl 20 Mg Capsule) 60 mg PO DAILY [facility] Hydroxyzine HCl (Hydroxyzine Hcl 25 Mg Tablet) 25 mg PO Q6H PRN PRN Reason: Anxiety Loratadine (Loratadine 10 Mg Tablet) 10 mg PO DAILY [facility] Last Admin: 05/04/23 09:53 Dose: 10 mg Magnesium Hydroxide (Milk Of Magnesia 30 Ml Oral.Susp) 30 ml PO DAILY PRN PRN Reason: Constipation Last Admin: 05/04/23 14:16 Dose: 30 ml Magnesium Oxide (Magnesium Oxide 400 Mg Tablet) 800 mg PO DAILY [facility] Last Admin: 05/04/23 09:53 Dose: 800 mg Multivitamins/Vitamin C (Multivitamin Tablet) 1 tab PO DAILY [facility] Last Admin: 05/04/23 09:53 Dose: 1 tab Pat Own Med( Lisdexamfetamine [ Vyvanse] 70 Mg Capsule) 70 mg PO DAILY [facility] Last Admin: 05/04/23 09:52 Dose: 70 mg Patient Own Med ( Norgestimate-Ethinyl Estradiol 0.25-35 Mg-Mcg Tablet) 1 tab PO DAILY [facility] Last Admin: 05/04/23 09:58 Dose: 1 tab Spironolactone (Spironolactone 25 Mg Tablet) 100 mg PO BID [facility]; Protocol Last Admin: 05/04/23 09:52 Dose: 100 mg Trazodone HCl (Trazodone Hcl 50 Mg Tablet) 50 mg PO BEDTIME MRX1 PRN PRN Reason: Insomnia Allergies Allergies Allergy/AdvReac Type Severity Reaction Status Date / Time almond oil Allergy Unknown hives Uncoded 01/19/20 00:00 almonds Allergy Unknown Uncoded 01/19/20 00:00 apples Allergy Unknown Uncoded 01/19/20 00:00 cat/dog dander Allergy Unknown Uncoded 01/19/20 00:00 green beans Allergy Unknown Uncoded 01/19/20 00:00 hazelnuts Allergy Unknown Uncoded 01/19/20 00:00 polymixin B (neosporin) Allergy Unknown Uncoded 01/19/20 00:00 singulair Allergy Unknown Uncoded 01/19/20 00:00 Assessment & Plan Assessment & Plan (1) Depression: Status: Acute Code(s): F32.A - Depression, unspecified (2) Suicidal ideation: Status: Acute Code(s): R45.851 - Suicidal ideations Plan In conclusion Angela was admitted for safety and stabilization. Current medications, Lexapro 20 mg and Vyvanse 70 mg were continued. She will meet with her treatment team on 05/03/2023. Contacts to be made with her treaters. 05/02: Continue current regimen and plans 05/03: message sent to yina, outpt provider, for input. medications Hx taken. no change to mgmt today, pending input from yina. 05/04: case D/W yina and pt. plan made to DC lexapro and start prozac 60 mg daily. also considering adding risperidone 0.5-1 mg at HS. pt planning to discharge wednesday. Reason for continued inpatient stay Substantial Risk for: rapid decompensation Time Spent With Patient Time: Total time managing care of this patient today __35__ minutes.
[2023-05-04 20:25] VITALS: BP 119/77; PULSE 100; RESP 16; TEMP 36.2; O2SAT 97
[2023-05-05] MEDS: hydrOXYzine HCL 25 MG TABLET PO (00:10)
[2023-05-05] MEDS: FLUoxetine HCl 20 MG CAPSULE 60 MG PO (09:32)
[2023-05-05] MEDS: Multivitamin TABLET 1 TAB PO (09:33)
[2023-05-05] MEDS: Magnesium Oxide 400 MG TABLET 800 MG PO (09:33)
[2023-05-05] MEDS: Famotidine 20 MG TABLET PO ×2 (09:34→20:41)
[2023-05-05] MEDS: Loratadine 10 MG TABLET PO (09:34)
--- NOTE | 2023-05-05 09:35 | PC.NURSE ---
Pt received last dose of Vyvanse 70mg, pt aware & will reach out to parents to bring in additional refill.
[2023-05-05 09:43] VITALS: BP 99/60; PULSE 92; TEMP 36.3; O2SAT 96
[2023-05-05] MEDS: Spironolactone 25 MG TABLET 100 MG PO ×2 (10:27→20:41)
[2023-05-05 14:18] LABS: Calcium (PTHI) 9.9 mg/dL (8.6-10.2); PTHI 33 pg/mL (16-77)
--- NOTE | 2023-05-05 15:47 | P.PNPSI_ITS ---
Subjective Subjective Date of Service: 05/05/23 Reason For Visit: depression/SI Interim History: calm, cooperative. upon being informed her sister would be coming to [facility] wednesday only, wanting to discharge wednesday. no problems with switch to prozac. per staff, anx/dep 5. slept overnight. +grps. safe. visit with mother went well. DFA, slept after atarax. Mental Status Exam Mental Status Exam Narrative: In today's visit she is alert, oriented and pleasant. Normal speech. Good eye contact. Affect is appropriate and constricted. No signs of psychosis. no SI/HI/AVH expressed. Cognitively is intact. Judgment is intact Diagnostics Vital Signs (24Hr): Vital Signs - 24 hr 05/04/23 20:25 05/05/23 09:43 Temperature 97.1 F 97.4 F Pulse Rate 100 92 Respiratory Rate 16 Blood Pressure 119/77 99/60 Pulse Oximetry 97 96 Oxygen Delivery Method Room Air Room Air BMI result Body Mass Index 17.7 Labs 04/30/23 11:45 04/30/23 11:45 Labs: Laboratory Results - last 48 hr 05/03/23 05/03/23 05/03/23 15:41 15:41 15:41 Vitamin B12 694 Folate 16.8 TSH 0.67 PTH Intact 33 Calcium (PTH Intact) 9.9 Medications Medications Current Medications Acetaminophen (Acetaminophen 325 Mg Tablet) 650 mg PO Q6H PRN PRN Reason: Headache/Pain Mild Scale (1-3) Al Hydroxide/Mg Hydroxide (Magnesium Hydrox/Alum Hydrox 30 Ml Oral.Susp) 30 ml PO Q6H PRN PRN Reason: Heartburn/Nausea Famotidine (Famotidine 20 Mg Tablet) 20 mg PO BID [facility] Last Admin: 05/05/23 09:34 Dose: 20 mg Fluoxetine HCl (Fluoxetine Hcl 20 Mg Capsule) 60 mg PO DAILY [facility] Last Admin: 05/05/23 09:32 Dose: 60 mg Hydroxyzine HCl (Hydroxyzine Hcl 25 Mg Tablet) 25 mg PO Q6H PRN PRN Reason: Anxiety Last Admin: 05/05/23 00:10 Dose: 25 mg Loratadine (Loratadine 10 Mg Tablet) 10 mg PO DAILY [facility] Last Admin: 05/05/23 09:34 Dose: 10 mg Magnesium Hydroxide (Milk Of Magnesia 30 Ml Oral.Susp) 30 ml PO DAILY PRN PRN Reason: Constipation Last Admin: 05/04/23 14:16 Dose: 30 ml Magnesium Oxide (Magnesium Oxide 400 Mg Tablet) 800 mg PO DAILY [facility] Last Admin: 05/05/23 09:33 Dose: 800 mg Multivitamins/Vitamin C (Multivitamin Tablet) 1 tab PO DAILY [facility] Last Admin: 05/05/23 09:33 Dose: 1 tab Pat Own Med( Lisdexamfetamine [ Vyvanse] 70 Mg Capsule) 70 mg PO DAILY [facility] Last Admin: 05/05/23 09:34 Dose: 70 mg Patient Own Med ( Norgestimate-Ethinyl Estradiol 0.25-35 Mg-Mcg Tablet) 1 tab PO DAILY [facility] Last Admin: 05/05/23 09:34 Dose: 1 tab Spironolactone (Spironolactone 25 Mg Tablet) 100 mg PO BID [facility]; Protocol Last Admin: 05/05/23 10:27 Dose: 100 mg Trazodone HCl (Trazodone Hcl 50 Mg Tablet) 50 mg PO BEDTIME MRX1 PRN PRN Reason: Insomnia Allergies Allergies Allergy/AdvReac Type Severity Reaction Status Date / Time almond oil Allergy Unknown hives Uncoded 01/19/20 00:00 almonds Allergy Unknown Uncoded 01/19/20 00:00 apples Allergy Unknown Uncoded 01/19/20 00:00 cat/dog dander Allergy Unknown Uncoded 01/19/20 00:00 green beans Allergy Unknown Uncoded 01/19/20 00:00 hazelnuts Allergy Unknown Uncoded 01/19/20 00:00 polymixin B (neosporin) Allergy Unknown Uncoded 01/19/20 00:00 singulair Allergy Unknown Uncoded 01/19/20 00:00 Assessment & Plan Assessment & Plan (1) Depression: Status: Acute Code(s): F32.A - Depression, unspecified (2) Suicidal ideation: Status: Acute Code(s): R45.851 - Suicidal ideations Plan In conclusion Angela was admitted for safety and stabilization. Current medications, Lexapro 20 mg and Vyvanse 70 mg were continued. She will meet with her treatment team on 05/03/2023. Contacts to be made with her treaters. 05/02: Continue current regimen and plans 05/03: message sent to yina, outpt provider, for input. medications Hx taken. no change to mgmt today, pending input from yina. 05/04: case D/W yina and pt. plan made to DC lexapro and start prozac 60 mg daily. also considering adding risperidone 0.5-1 mg at HS. pt planning to discharge wednesday. 05/05: stable. no side effects from DC of lexapro and start of prozac. will consider risperidone addition for sometime outpt. planning to discharge wednesday now to be able to visit with her sister. Reason for continued inpatient stay Substantial Risk for: rapid decompensation Time Spent With Patient Time: Total time managing care of this patient today __25__ minutes.
[2023-05-05 20:40] VITALS: BP 113/58; PULSE 107; RESP 16; TEMP 36.1; O2SAT 97
[2023-05-05 21:30] VITALS: BP 96/64; PULSE 78
[2023-05-06] MEDS: Loratadine 10 MG TABLET PO (08:58)
[2023-05-06] MEDS: Famotidine 20 MG TABLET PO ×2 (08:58→20:54)
[2023-05-06] MEDS: FLUoxetine HCl 20 MG CAPSULE 60 MG PO (08:58)
[2023-05-06] MEDS: Magnesium Oxide 400 MG TABLET 800 MG PO (08:58)
[2023-05-06] MEDS: Spironolactone 25 MG TABLET 100 MG PO ×2 (08:58→20:54)
[2023-05-06] MEDS: Multivitamin TABLET 1 TAB PO (08:58)
[2023-05-06 09:26] VITALS: BP 96/62; PULSE 70; RESP 18; TEMP 36.7; O2SAT 98
--- NOTE | 2023-05-06 12:48 | P.DS_ITS ---
DS: Providers Provider Date of Service: 05/06/23 Date of admission: 04/30/23 18:03 Primary care physician: Maria G Oglesby MD DS: Diagnosis Discharge Diagnosis (1) Depression: Status: Acute (2) Suicidal ideation: Status: Acute DS: Medications Discharge Medications Home Medications: Home Medications Medication Instructions Recorded Confirmed famotidine 20 mg tablet 20 mg PO BID 04/30/23 04/30/23 fexofenadine 180 mg tablet 180 mg PO DAILY 04/30/23 04/30/23 magnesium oxide 800 mg PO DAILY 04/30/23 04/30/23 multivitamin 1 tab PO QAM 04/30/23 04/30/23 norgestimate 0.25 mg-ethinyl 1 tab PO DAILY 04/30/23 04/30/23 estradiol 35 mcg tablet omalizumab 75 mg/0.5 mL 225 mg subcut Q2W 04/30/23 04/30/23 subcutaneous syringe (Xolair) spironolactone 100 mg tablet 100 mg PO BID 04/30/23 04/30/23 Previous Rx's Medication Instructions Recorded lisdexamfetamine 70 mg capsule 70 mg PO DAILY 30 days #30 caps 05/05/23 (Vyvanse) fluoxetine 20 mg capsule 60 mg PO DAILY 30 days #90 caps 05/06/23 Mental Status Exam Mental Status Exam Narrative: In today's visit she is alert, oriented and pleasant. Normal speech. Good eye contact. Affect is appropriate and constricted. No signs of psychosis. mood good. no SI/HI/AVH. Cognitively is intact. Judgment is intact Data Data Completed and Pending Completed studies during hospitalization [Text1]: 04/30/23 04/30/23 04/30/23 11:39 11:45 11:45 WBC 7.9 RBC 4.27 Hgb 13.3 Hct 39.2 MCV 91.8 MCH 31.1 MCHC 33.9 RDW 11.6 Plt Count 346 MPV 9.7 Immature Gran % (Auto) 0.4 Neut % (Auto) 58.9 Lymph % (Auto) 28.5 [place] % (Auto) 9.1 Eos % (Auto) 2.3 Baso % (Auto) 0.8 Lymph # (Auto) 2.3 [place] # (Auto) 0.7 Eos # (Auto) 0.2 Baso # (Auto) 0.1 Abs Immat Gran (auto) 0.03 Absolute Neuts (auto) 4.7 Absolute Nucleated RBC 0.000 Nucleated RBC % (auto) 0.0 Sodium 136 Potassium 4.1 Chloride 101 Carbon Dioxide 26 Anion Gap 13 BUN 9 Creatinine 0.76 Estim Creat Clear Calc 86.4 Estimated GFR > 60 Random Glucose 107 Calcium 10.9 H Total Bilirubin 0.3 AST 13 ALT 7 Alkaline Phosphatase 49 Total Protein 8.2 H Albumin 4.5 Vitamin B12 Folate TSH PTH Intact Calcium (PTH Intact) Urine Color Urine Appearance Urine pH Ur Specific [place] Urine Protein Urine Glucose (UA) Urine Ketones Urine Blood Urine Nitrite Ur Leukocyte Esterase Urine Test Salicylates Urine Opiates Screen Urine Fentanyl Screen Acetaminophen Ur Barbiturates Screen Ur Phencyclidine Scrn Ur Amphetamines Screen U Benzodiazepines Scrn Urine Cocaine Screen U Marijuana (THC) Screen Ethyl Alcohol COVID-19 (IGLESIA) Negative COVID-19 R&L Com See Note 04/30/23 04/30/23 04/30/23 11:45 13:06 13:06 WBC RBC Hgb Hct MCV MCH MCHC RDW Plt Count MPV Immature Gran % (Auto) Neut % (Auto) Lymph % (Auto) [place] % (Auto) Eos % (Auto) Baso % (Auto) Lymph # (Auto) [place] # (Auto) Eos # (Auto) Baso # (Auto) Abs Immat Gran (auto) Absolute Neuts (auto) Absolute Nucleated RBC Nucleated RBC % (auto) Sodium Potassium Chloride Carbon Dioxide Anion Gap BUN Creatinine Estim Creat Clear Calc Estimated GFR Random Glucose Calcium Total Bilirubin AST ALT Alkaline Phosphatase Total Protein Albumin Vitamin B12 Folate TSH PTH Intact Calcium (PTH Intact) Urine Color Yellow Urine Appearance Clear Urine pH 6.0 Ur Specific [place] <= 1.005 Urine Protein Negative Urine Glucose (UA) Negative Urine Ketones Negative Urine Blood Negative Urine Nitrite Negative Ur Leukocyte Esterase Negative Urine Test NEGATIVE Salicylates < 5.0 L Urine Opiates Screen Urine Fentanyl Screen Acetaminophen < 17 Ur Barbiturates Screen Ur Phencyclidine Scrn Ur Amphetamines Screen U Benzodiazepines Scrn Urine Cocaine Screen U Marijuana (THC) Screen Ethyl Alcohol < 10 COVID-19 (IGLESIA) COVID-19 R&L Com 04/30/23 05/03/23 05/03/23 13:06 15:41 15:41 WBC RBC Hgb Hct MCV MCH MCHC RDW Plt Count MPV Immature Gran % (Auto) Neut % (Auto) Lymph % (Auto) [place] % (Auto) Eos % (Auto) Baso % (Auto) Lymph # (Auto) [place] # (Auto) Eos # (Auto) Baso # (Auto) Abs Immat Gran (auto) Absolute Neuts (auto) Absolute Nucleated RBC Nucleated RBC % (auto) Sodium Potassium Chloride Carbon Dioxide Anion Gap BUN Creatinine Estim Creat Clear Calc Estimated GFR Random Glucose Calcium Total Bilirubin AST ALT Alkaline Phosphatase Total Protein Albumin Vitamin B12 694 Folate 16.8 TSH 0.67 PTH Intact Calcium (PTH Intact) Urine Color Urine Appearance Urine pH Ur Specific [place] Urine Protein Urine Glucose (UA) Urine Ketones Urine Blood Urine Nitrite Ur Leukocyte Esterase Urine Test Salicylates Urine Opiates Screen Not Detected Urine Fentanyl Screen Not Detected Acetaminophen Ur Barbiturates Screen Not Detected Ur Phencyclidine Scrn Not Detected Ur Amphetamines Screen POSITIVE H U Benzodiazepines Scrn Not Detected Urine Cocaine Screen Not Detected U Marijuana (THC) Screen Not Detected Ethyl Alcohol COVID-19 (IGLESIA) COVID-19 [employer] 05/03/23 15:41 WBC RBC Hgb Hct MCV MCH MCHC RDW Plt Count MPV Immature Gran % (Auto) Neut % (Auto) Lymph % (Auto) [place] % (Auto) Eos % (Auto) Baso % (Auto) Lymph # (Auto) [place] # (Auto) Eos # (Auto) Baso # (Auto) Abs Immat Gran (auto) Absolute Neuts (auto) Absolute Nucleated RBC Nucleated RBC % (auto) Sodium Potassium Chloride Carbon Dioxide Anion Gap BUN Creatinine Estim Creat Clear Calc Estimated GFR Random Glucose Calcium Total Bilirubin AST ALT Alkaline Phosphatase Total Protein Albumin Vitamin B12 Folate TSH PTH Intact 33 Calcium (PTH Intact) 9.9 Urine Color Urine Appearance Urine pH Ur Specific [place] Urine Protein Urine Glucose (UA) Urine Ketones Urine Blood Urine Nitrite Ur Leukocyte Esterase Urine Test Salicylates Urine Opiates Screen Urine Fentanyl Screen Acetaminophen Ur Barbiturates Screen Ur Phencyclidine Scrn Ur Amphetamines Screen U Benzodiazepines Scrn Urine Cocaine Screen U Marijuana (THC) Screen Ethyl Alcohol COVID-19 (IGLESIA) COVID-19 R&L Com DS: Summary Hospital Course Hospital Course: per 05/01 admission note: Angela is a 23-year-old white, single, [employer] student/sophomore in Neuro Sciences.? She has history of depression going back at least a couple of years and has been on Lexapro 20 mg and also has been treated for ADHD, on Vyvanse 70 mg for a couple of years also.? The Vyvanse has been helpful with her level of energy, focus and ability to complete tasks.? She is taking summer courses and states that she has been feeling more depressed in the past couple weeks but denies any specific reasons.? She did not have a good year and has been struggling academically.? She has been having plans to overdose and eventually was brought in by her parents to the emergency room and subsequently hospitalized.? No previous history of suicidal ideations or attempts.? No history of substance abuse.? She denies any side effects on her to medications.? Sleeping has been up and down, sometimes having trouble to going to sleep and once she does she may sleep for up to 10-12 hours.? Eating and appetite are unchanged. Past Psychiatric History: Outpatient treatment, seeing a therapist, Gloria Nava and Dr. Vargas for her medications. Medical Evaluation Reviewed: Yes Labs were reviewed.? Elevated total protein at 8.2 PMFSH Narrative: Positive for asthma, speech apraxia Family History: None except for OCD in her sister Social History: Angela is 1 of 2 girls.? She has an older sister who lives in [facility].? Her parents are together and live in [place].? She is currently living at home for the summer but during academic year she lives at school.? Limited social life.? No relationships.? She denies any history of abuse.? Becau se of speech apraxia she was involved with a lot of speech therapy throughout her growing up years.? She did fairly well in high school but struggled in her 2nd year in college and that may be the reason for her current depression and suicidal ideations, being unsure about her future prospects and current struggles and predicament. Substance History: None Trauma History: None Precis: 05/01: In conclusion Angela was admitted for safety and stabilization.? Current medications, Lexapro 20 mg and Vyvanse 70 mg were continued.? She will meet with her treatment team on 05/03/2023.? Contacts to be made with her treaters. 05/02: Continue current regimen and plans 05/03:? message sent to yina, outpt provider, for input.? medications Hx taken.? no change to mgmt today, pending input from yina. 05/04:? case D/W yina and pt.? plan made to DC lexapro and start prozac 60 mg daily.? also considering adding risperidone 0.5-1 mg at HS.? pt planning to discharge wednesday. 05/05:? stable.? no side effects from DC of lexapro and start of prozac.? will consider risperidone addition for sometime outpt.? planning to discharge wednesday now to be able to visit with her sister. 05/06: stable. tolerating medications change. continue current mgmt. discharge tomorrow. 05/07: discharged as per plan. stable, no notable events. Time Spent with Patient Time attestation: Total time managing care of this patient today ____ minutes. Time spent: Greater than 30 minutes Discharge Plan Discharge Anticipated Discharge Date/Time: 05/07/23 14:00 Patient Disposition: Home, Self-Care Discharge Diagnosis: Depressive Disorder NOS Referrals: Partial Hospitalization Program (PHP) [Other] - 05/17/23 8:00 am (IN OFFICE INTAKE APPOINTMENT) Dr. Suleiman Mullen (Psychiatry) [Other] - 05/11/23 1:20 pm (IN OFFICE APPOINTMENT) Gloria Galvez (Therapy) [Other] - 05/13/23 2:00 pm (TELEHEALTH APPOINTMENT) Maria G Oglesby MD [Primary Care Provider] - 05/13/23 2:40 pm (PCP Dr. Maria G Oglesby confirmd for May 13 at 2:40pm) Discharge Medications: New Vyvanse 70 mg capsule 70 mg PO DAILY 30 Days Qty: 30 0RF Rx Instructions: Partial Fill upon patient request. fluoxetine 20 mg Capsule 60 mg PO DAILY 30 Days Qty: 90 0RF Continued multivitamin Tablet 1 tab PO QAM fexofenadine 180 mg Tablet 180 mg PO DAILY famotidine 20 mg Tablet 20 mg PO BID magnesium oxide 400 mg magnesium Capsule 800 mg PO DAILY Xolair 75 mg/0.5 mL syringe 225 mg subcut Q2W Rx Instructions: took on sat 04/25/23 norgestimate-ethinyl estradiol 0.25-35 mg-mcg tablet 1 tab PO DAILY spironolactone 100 mg tablet 100 mg PO BID Discontinued escitalopram oxalate 20 mg tablet 20 mg PO DAILY Vyvanse 70 mg capsule 70 mg PO DAILY Xolair 150 mg/mL syringe 225 mg subcut Q2W Rx Instructions: Took on wednesday04/25/23 Discharge Orders: Discharge Order (Routine); Ordered 05/07/23 Ordered By: Cas Link Diet: Advance to usual diet Activity on Discharge: As tolerated Stand Alone Forms: Patient Portal Discharge page, Community Support Care Plan Goals: remain safe and stable in the outpatient treatment setting Health Concerns: none Plan of Treatment: take medications as prescribed, attend appointments as scheduled Assessment: not at imminent risk of harm to self or others Discharge Date/Time: 05/07/23 11:24
[2023-05-06 18:00] VITALS: BP 98/63; PULSE 70; RESP 16; TEMP 36.4; O2SAT 98
[2023-05-06 21:30] VITALS: BP 96/64; PULSE 78
[2023-05-07 09:35] VITALS: BP 102/61; PULSE 80; TEMP 36.6; O2SAT 97
[2023-05-07] MEDS: FLUoxetine HCl 20 MG CAPSULE 60 MG PO (09:41)
[2023-05-07] MEDS: Spironolactone 25 MG TABLET 100 MG PO (09:41)
[2023-05-07] MEDS: Magnesium Oxide 400 MG TABLET 800 MG PO (09:42)
[2023-05-07] MEDS: Multivitamin TABLET 1 TAB PO (09:42)
[2023-05-07] MEDS: Famotidine 20 MG TABLET PO (09:42)
[2023-05-07] MEDS: Loratadine 10 MG TABLET PO (09:43)
--- NOTE | 2023-05-07 09:58 | PC.NURSE ---
Pt received Vyvanse 70mg dose. RN returned medication bottle to patient.
--- NOTE | 2023-05-07 10:20 | PC.NURSE ---
Reviewed discharge information w pt, pt received copy of discharge instructions and verbalized understanding. Pt plans to take medications and attend appointments as scheduled. Pt denies SI/HI/AH/VH.
--- NOTE | 2023-05-14 13:04 | HE.PHANOTE ---
Teetee has a discrepancy from 05/06/23 about pt owns vyvanse. Called patient to confirm that patient received the remaining of her prescription. Pt confirmed on the phone with me personally that she did receive 29 capsules of her vyvanse prior to discharge.
== END 2023-05-07 11:24 | disposition home or self-care (01) | DRG 754 ==
LOC: HO.ED 16:53 → HO.PADLT16 18:11
PROVIDERS: Admitting Provider Psychiatry & Neurology Psychiatry; Emergency Provider Emergency Medicine; PCP Internal Medicine; Visit Provider Psychiatry & Neurology Psychiatry
DX: F32.A Depression, unspecified (principal); R45.851 Suicidal ideations; Z20.822 Contact with and (suspected) exposure to COVID-19; Z79.899 Other long term (current) drug therapy
CPT/HCPCS: 36415; 80053; 80143; 80179; 80307; 81003; 81025; 82607; 82746; 83970; 84443; 85025; 87635; 99285; S9485

== ENCOUNTER 2023-06-02 12:00 | Outpatient (RCR) | payer BC, SELFPAY ==
[2023-05-19 12:08] VITALS: BP 98/80; PULSE 86; TEMP 36.7
[2023-05-19 12:11] VITALS: BMI 20.8
--- NOTE | 2023-05-19 13:12 | PC.ADMIT ---
Patient is a 23 year old female who was referred to [facility] by [facility] inpatient behavioral health unit where she was hospitalized from 04/30-05/07/23 for increased depression with plan to overdose on medication. Patient reportedly told her psychiatrist of her plans to overdose thus her parents took her to the emergency room for evaluation. Patient currently presents with depressed mood and affect. Reports passive SI, denied plan or intent to kill herself. Patient reports she is going into her second year at [employer] and is currently signed up to take an online course and has an appointment with the school to discuss options on whether or not to take the course at this time. She is help seeking and engaging in the groups today. She is alert and oriented x4. Calm and cooperative. She lives with her parents who are supportive. Patient given a copy of her safety plan if needed.
--- NOTE | 2023-05-20 09:54 | HO.PS.ADMBH ---
[facility] Date of Service: 05/20/23 Chief Complaint: depression Sources of Information: patient interviewed, chart reviewed and crisis/core team assessment reviewed HPI Healthcare Proxy: No Guardianship: No Narrative: 23 yo admitted to [facility] as step down from M% inpatient admission; she was admitted to M5 after parents brought to [facility] following an appt with her outpatient provider Dr Suleiman Mullen where pt reported SI with plan to overdose. Pt reports she had been thinking about SI frequently and was worried she would act on it. Today patient reports continued passive SI but no plan and no intent; she reports the SI is less intense. She did well on M5 , lexapro changed to Prozac while in patient and was discharged on 05/07. Pt is struggling with depression symptoms including low mood, low energy, loss of enjoyment and isolating. She struggles with concentration and focus. She is tolerating the switch to Prozac. She has outpatient providers and will see Dr Suleiman Mullen for follow up on 05/26/23. Past Psychiatric History: Outpatient treatment, seeing a therapist, Gloria Nava and Dr. Vargas for her medications. reports OCD started in 6th grade. She reports the OCD symptoms seemed to resolve. she became depressed in 2nd year of college. She did TMS treatments in 2020. One IPLOC 04/2023 M5 GERD, asthma, speech apraxia slightly elevated protein and calcium patient is following up with [facility] Medical History (Updated 05/19/23 @ 11:59 by Janet James RN) Asthma GERD (gastroesophageal reflux disease) Family History: None except for OCD in her sister Social History: Angela is 1 of 2 girls. She has an older sister who lives in [facility]. Her parents are together and live in [place]. She is currently living at home for the summer but during academic year she lives at school. Limited social life. No relationships. She denies any history of abuse. 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 She did fairly well in high school but struggled in her 2nd year in college and that may be the reason for her current depression and suicidal ideations, being unsure about her future prospects and current struggles and predicament. Substance History: pt denies substance use histroy uses alcohol rarely Trauma History: need for speech therapy as child for apraxia was stressful for her Diagnostics Vital Signs (24Hr): Vital Signs - 24 hr 05/19/23 12:08 Temperature 98.0 F Pulse Rate 86 Blood Pressure 98/80 BMI result Body Mass Index 20.8 Meds/Allergies Meds Home Medications Medication Instructions Recorded Confirmed Type famotidine 20 mg tablet 20 mg PO BID 04/30/23 05/19/23 History fexofenadine 180 mg tablet 180 mg PO DAILY 04/30/23 05/19/23 History magnesium oxide 800 mg PO DAILY 04/30/23 05/19/23 History norgestimate 0.25 mg-ethinyl 1 tab PO DAILY 04/30/23 05/19/23 History estradiol 35 mcg tablet omalizumab 75 mg/0.5 mL 225 mg subcut Q2W 04/30/23 05/19/23 History subcutaneous syringe (Xolair) spironolactone 100 mg tablet 100 mg PO BID 04/30/23 05/19/23 History fluoxetine 20 mg capsule 40 mg PO DAILY 05/28/23 05/28/23 History vilazodone 10 mg tablet 10 mg PO DAILY 05/28/23 05/28/23 History Narrative: discharged from M5 on Prozac 60 mg daily and vyvanse 70 mg daily Allergies Allergies Allergy/AdvReac Type Severity Reaction Status Date / Time almond oil Allergy Unknown hives Uncoded 01/19/20 00:00 almonds Allergy Unknown Uncoded 01/19/20 00:00 apples Allergy Unknown Uncoded 01/19/20 00:00 cat/dog dander Allergy Unknown Uncoded 01/19/20 00:00 green beans Allergy Unknown Uncoded 01/19/20 00:00 hazelnuts Allergy Unknown Uncoded 01/19/20 00:00 polymixin B (neosporin) Allergy Unknown Uncoded 01/19/20 00:00 singulair Allergy Unknown Uncoded 01/19/20 00:00 Mental Status Exam Mental Status Exam Patient Appearance: Well Grooomed and Appropriate Patient Orientation: Person, Place, Time and Situation Level of Consciousness: Awake Patient Behavior: Appropriate Mood Description: Anxious and Flat Affect Description: Flat Patient Cognition Impaired: No Ability to Follow Directions: Good Speech Pattern: Clear and Appropriate Memory Description: Intact Hallucinations: None Delusions: Not Present Thought Process: Intact and Goal Oriented Thought Content: positive for Intact and positive for Goal Oriented Judgement: Good Telehealth Telehealth Location of provider rendering services: other Location of patient: other ([facility] ) Patient Identification confirmed using: Name, : Yes Telehealth method: video Patient verbally consented to treatment: Yes Patient verbally consented to billing insurance company: Yes Patient informed of any privacy concerns related to visit: Yes Minutes spent on Phone/Video with Pt.: 30 Assessment & Plan Assessment & Plan (1) Depression: Status: Acute Code(s): F32.A - Depression, unspecified Plan Assessment 23 yo with history of depression and ADHD admitted to [facility] as step down from inpatient after episode of increased SI with paln responding well to medication change and increased support; approite for [facility] and in need of continued treatment Plan: admit to [facility] group treatment per protocol no medication changes pt will follow up with outpatient psychiatrsit as scheduled. Patient educated on: diagnosis and therapeutic strategies Informed Consent: understands Reason for continued partial hosp. stay Substantial Risk for: harm to self and rapid decompensation Certification I certify that partial hospital treatment is medically necessary due to the symptoms and problems resulting from the patient's mental illness and the failure to treat the patient at the partial hospital level of care would likely result in the patient requiring inpatient psychiatric care which could not be prevented at a less intensive level of care. Time Spent With Patient Time: Total time managing care of this patient today ___60_ minutes.
--- NOTE | 2023-05-21 08:46 | HO.PHP ---
The clients case was reviewed and opened in treatment team.
--- NOTE | 2023-05-25 15:11 | HO.PHP ---
I met with Angela to go over her treatment plan and to discuss her experience in the group and explore ways to help her to share her issues in a meaningful way so she can get the support that she needs.
--- NOTE | 2023-05-28 15:51 | HO.IOP ---
I called Rebecca Gupta PHD to info=rm of clients progress and discharge date.
== END 2023-06-02 23:59 | disposition home or self-care (01) ==
LOC: HO.PHPA 12:00
PROVIDERS: Visit Provider Psychiatry & Neurology Psychiatry
DX: F32.A Depression, unspecified (principal); Z79.899 Other long term (current) drug therapy
CPT/HCPCS: 90791; 90853

== ENCOUNTER → 2023-06-02 12:00 | Outpatient (BNV) | payer BC, SELFPAY | PROVIDERS: Visit Provider Clinical Nurse Specialist Psychiatric/Mental Health | DX: F32.A Depression, unspecified (principal) | CPT/HCPCS: 90792 ==